=== PATIENT | female | born 1980 | race Caucasian/White ===

== ENCOUNTER 2020-07-05 08:11 | Emergency (ER) | payer OTHER ==
[~2020-07-05] VITALS: Ht 172.7 cm; Wt 120.2 kg
[2020-07-05 08:11] VITALS: BP_SYST 116
--- NOTE | 2020-07-05 08:11 | NUR ---
BROUGHT BACK TO BED IN HALLWAY, TRIAGED AND REPORT GIVEN TO LUZ MARIA
--- NOTE | 2020-07-05 08:17 | NUR ---
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 PT STATES SHE HEARD A POP AND PAIN WITH AMBULATION
--- NOTE | 2020-07-05 08:35 | NUR ---
ER Dr. Foster at bedside examining patient.
[2020-07-05] MEDS ORDERED: KETOROLAC TROMETHAMINE 60 MG/2 ML VIAL IM ONE (09:00)
--- NOTE | 2020-07-05 09:00 | NUR ---
splint applied to right ankel. positive pulse noted. Capillary refill <3 seconds. Patient has ability to move non-splinted digits. Has sensation present to affected site. Skin color within normal limits. Applied for pain management control.
[2020-07-05 09:17] VITALS: BP_SYST 116
--- NOTE | 2020-07-05 09:17 | NUR ---
Patient given written and verbal discharge instructions and verbalizes understanding. ER MD discussed with patient the results and treatment provided. Patient in stable condition. ID arm band removed. Rx of Motrin given. Patient educated on pain management and to follow up with PMD. Pain Scale 0. Opportunity for questions provided and answered. Medication side effect fact sheet provided.
== END 2020-07-05 09:17 | disposition home or self-care (01) ==
LOC: EDBD → SED 08:11
DX: S93.491A Sprain of other ligament of right ankle, initial encounter (principal); S93.691A Other sprain of right foot, initial encounter; W18.49XA Other slipping, tripping and stumbling without falling, initial encounter; Y93.89 Activity, other specified; Y92.89 Other specified places as the place of occurrence of the external cause; Y99.8 Other external cause status
CPT/HCPCS: 29515; 73610; 73630; 96372; 99284; J1885